=== PATIENT | female | born 1945 | race Caucasian/White ===

== ENCOUNTER 2019-09-16 15:46 | Emergency (ER) | payer MEDICARE, SELFPAY ==
--- NOTE | ~2019-09-16 | CT_ITS ---
EXAMINATION: CT chest w con DATE: 09/16/2019 18:50 INDICATION: chest mass TECHNIQUE: Computed tomography (CT) of the chest was performed with 75 mL Omnipaque-350 intravenous c ontrast. Additional 3D reconstructions utilizing coronal maximum intensity projection (MIP) were perf ormed. Automated exposure control and iterative reconstruction technique were employed. The dose-murali th product was 139.29 mGy-cm. COMPARISON: None FINDINGS: There is an approximately 9.5 x 7.7 x 10.8 cm left upper lobe mass which extends into the mediastinum concerning for primary bronchogenic carcinoma. There is consolidation in the anterior segment of the left upper lobe consistent with secondary atelectasis and possibly underlying postobstructive pneumo eleazar. The mass extends through the AP window resulting in significant stenosis of the left pulmonary a rtery. There is also significant stenosis of the left upper lobe bronchus. Portion of the mass extend s cephalad in the anterior mediastinum and occludes the left brachiocephalic vein. Injected contrast from the left upper extremity extensive multiple chest wall and paraspinal collaterals and into the s uperior vena cava via the right brachiocephalic vein. The mass encases the origin of the left carotid artery and extends around greater than 270 degrees of the circumference of the proximal aortic arch. Small left pleural effusion. Mild atelectasis/scarring at the anterolateral basilar right lower lobe. Heart size is normal. Very small pericardial effusion or potentially malignant with the mediastinal portion of the mass contacting a significant portion of the pericardium with effacement of the interv ening fat plane. Fusiform ascending thoracic aortic aneurysm measuring 4.5 x 4.4 cm. 1.4 x 0.8 x 1.5 cm epicardial lymph node near the apex of the heart which could be metastatic. Visualized upper abdom en is unremarkable. Severe spondylosis at the cervicothoracic junction. Severe left and moderate righ t glenohumeral osteoarthritis. IMPRESSION: 1. Large left upper lobe perihilar mass which invades the mediastinum concerning for primary bronchog enic carcinoma. 2. Secondary occlusion of the left brachiocephalic vein, significant stenosis of the left main pulmon chioma artery and left upper lobe bronchus and encasement of the origin of the left carotid artery which does not appear narrowed. 3. Consolidation in the anterior segment of the left upper lobe likely secondary atelectasis although underlying postobstructive pneumonia is not excludable. 4. 4.5 cm ascending thoracic aortic aneurysm. 5. Small pericardial effusion which could be malignant given the direct contact the mass with portion s of the pericardium. 6. Small left pleural effusion. 7. Enlarged epicardial lymph node which may be metastatic. Reviewed, dictated and finalized at location A. IMPRESSION: 1. Large left upper lobe perihilar mass which invades the mediastinum concernin g for primary bronchogenic carcinoma. 2. Secondary occlusion of the left brachiocephalic vein, significant stenosis o f the left main pulmonary artery and left upper lobe bronchus and encasement of the origin of the left carotid artery which does not appear narrowed. 3. Consolidation in the anterior segment of the left upper lobe likely secondar y atelectasis although underlying postobstructive pneumonia is not excludable. 4. 4.5 cm ascending thoracic aortic aneurysm. 5. Small pericardial effusion which could be malignant given the direct contact the mass with portions of the pericardium. 6. Small left pleural effusion. 7. Enlarged epicardial lymph node which may be metastatic.
--- NOTE | ~2019-09-16 | XR_ITS ---
EXAMINATION: XR chest 1V portable DATE: 09/16/2019 18:02 INDICATION: Shortness of breath TECHNIQUE: frontal view of the chest was obtained. COMPARISON: Chest radiograph dated 08/24/2014 FINDINGS: Left perihilar mass which is concerning for malignancy. Small bilateral pleural effusions. No pulmona ry edema or pneumothorax. Mild right apical pleural-parenchymal scarring. The cardiomediastinal silho uette is normal. Mild thoracic dextrocurvature. Severe left glenohumeral osteoarthritis. IMPRESSION: 1. Left perihilar mass concerning for malignancy. Recommend further evaluation with contrast-enhanced CT. 2. Small bilateral pleural effusions. Reviewed, dictated and finalized at location A.
[2019-09-16 15:48] VITALS: BP 170/106; PULSE 98; RESP 24; TEMP 36.2; O2SAT 97
[2019-09-16 16:00] VITALS: PULSE 98
--- NOTE | 2019-09-16 16:50 | ED.SOB ---
HPI - SOB/Dyspnea General Chief Complaint: Shortness of Breath/Dyspnea <Angelo James MD - Last Filed: 09/22/19 16:35> Stated Complaint: SOB <Angelo James MD - Last Filed: 09/22/19 16:35> Time Seen by Provider: 09/16/19 15:58 <Angelo James MD - Last Filed: 09/22/19 16:35> History of Present Illness HPI Narrative: Shortness of breath for several weeks. Worse with exertion. Occasional wheezing, usually clears with coughing or clearing her throat. No fever, chest pain, palpitations, LE edema. She is a former smoker. <Angelo James MD - Last Filed: 09/22/19 16:35> Related Data Home Medications: Home Medications Medication Instructions Recorded Confirmed aspirin [Aspirin Low Dose] 81 mg PO DAILY 09/16/19 carvedilol 6.25 mg PO BID 09/16/19 levothyroxine 50 mcg PO DAILY 09/16/19 meloxicam [Mobic] 15 mg PO DAILY 09/16/19 quinapril 40 mg PO BID 09/16/19 sertraline 50 mg PO DAILY 09/16/19 simvastatin 20 mg PO DAILY 09/16/19 <Angelo James MD - Last Filed: 09/22/19 16:35> Allergies/Adverse Reactions: Allergies Allergy/AdvReac Type Severity Reaction Status Date / Time Sulfa (Sulfonamide Allergy Mild Hives Verified 09/16/19 16:03 Antibiotics) Penicillins Allergy Unknown Unknown Verified 09/16/19 16:03 sulfanilamide Allergy Unknown Hives Verified 09/16/19 16:03 <Angelo James MD - Last Filed: 09/22/19 16:35> Review of Systems Review of Systems: All systems reviewed & are unremarkable except as noted in HPI and below <Angelo James MD - Last Filed: 09/22/19 16:35> Constitutional: Constitutional: Denies chills and Denies fever(s) <Angelo James MD - Last Filed: 09/22/19 16:35> ENT: Denies sore throat <Angelo James MD - Last Filed: 09/22/19 16:35> Cardiovascular: Cardiovascular: Denies chest pain <Angelo James MD - Last Filed: 09/22/19 16:35> Respiratory: Respiratory: Denies cough, Reports dyspnea and Reports wheezing <Angelo James MD - Last Filed: 09/22/19 16:35> Gastrointestinal: Gastrointestinal: Denies nausea and Denies vomiting <Angelo James MD - Last Filed: 09/22/19 16:35> Genitourinary: Genitourinary: Denies dysuria <Angelo James MD - Last Filed: 09/22/19 16:35> Musculoskeletal: Musculoskeletal: Denies back pain <Angelo James MD - Last Filed: 09/22/19 16:35> Neurologic: Denies dizziness <Angelo James MD - Last Filed: 09/22/19 16:35> PMFSH Past Medical History Medical History: Medical History HTN (hypertension) Hypothyroidism <Angelo James MD - Last Filed: 09/22/19 16:35> Family History Family History: Family History Father Hypertension Patient's father is Mother Hypertension Patient's mother is <Angelo James MD - Last Filed: 09/22/19 16:35> Social History Social History: Social History Smoking status: Former smoker Second hand tobacco smoke exposure: No Smoking end date: 04/13/03 Alcohol intake: current Gender identity (if verbalized by the patient): Female <Angelo James MD - Last Filed: 09/22/19 16:35> Exam Const: General: healthy appearing, no acute distress and alert <Angelo James MD - Last Filed: 09/22/19 16:35> Nutritional Appearance: well nourished <Angelo James MD - Last Filed: 09/22/19 16:35> Orientation/consciousness: patient oriented x3 <Angelo James MD - Last Filed: 09/22/19 16:35> HENMT: Head: normal to inspection <Angelo James MD - Last Filed: 09/22/19 16:35> Chest: Chest palpation & inspection: normal inspection of the chest <Angelo James MD - Last Filed: 09/22/19 16:35> Resp: Effort & Inspection: normal respiratory effort
--- NOTE | 2019-09-16 17:00 | ECG_ITS ---
Measurements Intervals [place] Rate: 98 P: 72 MD: 163 QRS: -6 QRSD: 148 T: 122 QT: 381 QTc: 487 Interpretive Statements SINUS RHYTHM LEFT BUNDLE BRANCH BLOCK BASELINE ARTIFACT- I, II, AVR, V6 ABNORMAL ECG Electronically Signed On 09-16-2019 17:10:20 CDT by Dustin Galan D.O.
[2019-09-16] MEDS: ALBUTEROL SULFATE (*SP) AEROSOL 1 PUFF 4 PUFF INHALATION (17:37)
[2019-09-16 18:14] LABS: Basophils Percent Auto 0.2 % (0.2-1.2); Eosinophils Percent Auto 0.7 % (0-4.4); Hematocrit 37.1 % (37.0-47.0); Immature Granulocyte Absolute 0.02 K/mm3 (0.00-0.031); Immature Granulocyte Percent A 0.5 % (0-0.5); Lymphocytes Absolute Auto 0.37 K/mm3 (0.9-3.2); Lymphocytes Percent Auto 8.4 % (18.3-44.2); Mean Corpuscular Hemoglobin 30.7 pg (26-34); Mean Corpuscular Volume 87.5 fl (80-100); Mean Platelet Volume 8.8 fl (7.4-10.4); Monocytes Absolute Auto 0.4 K/mm3 (0.1-0.6); Monocytes Percent Auto 9.5 % (2.6-8.5); Neutrophils Absolute Auto 3.6 K/mm3 (1.3-6.7); Neutrophils Percent Auto 80.7 % (45.5-73.1); Platelet Count Result 242 k/mm3 (150-375); Red Blood Count 4.24 M/mm3 (4.2-5.4); Red Cell Distribution Width 13.2 % (11.5-14.5); White Blood Count 4.4 K/mm3 (4.5-10.0)
[2019-09-16 18:21] LABS: Prothrombin Time 12.7 Seconds (11.1-14.7)
[2019-09-16 18:22] LABS: Partial Thromboplastin Time 29.2 SECONDS (22.3-36.8)
[2019-09-16 18:27] LABS: Blood Urea Nitrogen 18 mg/dL (7-17); Calcium 9.1 mg/dL (8.4-10.2); Carbon Dioxide 27 mmol/L (22-30); Chloride 87 mmol/L (98-107); Estimated CRCL calculation 52 ml/min; Estimated Glomerular Filt Rate > 60; Glucose 93 mg/dL (65-105); Potassium 4.3 mmol/L (3.4-5.0); Sodium 123 mmol/L (137-145)
[2019-09-16 18:39] LABS: NT Pro B Type Natriuretic Pept 2660 PG/ML (5-100); Troponin I < 0.012 ng/mL (0.000-0.034)
[2019-09-16 20:56] VITALS: BP 165/86; PULSE 68; RESP 16; TEMP 36.6; O2SAT 98
[2019-09-16 22:13] VITALS: BP 149/90; PULSE 101; RESP 16; O2SAT 98
--- NOTE | 2019-09-16 23:00 | PC.NURSE ---
report given to WARD tucker
[2019-09-16 23:01] VITALS: BP 161/91; PULSE 73; RESP 28; O2SAT 98
--- NOTE | 2019-09-16 23:19 | PC.NURSE ---
notified Jaimie that this patient is going to be transferred to [facility].
--- NOTE | 2019-09-17 00:31 | PC.NURSE ---
This nurse spoke with ER charge Joyce at [id number], she states report had been given and documented. EMS called, ETA [id number].
[2019-09-17 00:41] VITALS: BP 131/82; PULSE 67; RESP 16; O2SAT 97
[2019-09-17 01:35] VITALS: BP 177/78; PULSE 68; RESP 15; O2SAT 98
[2019-09-17 13:40] LABS: SARS-CoV-2 RNA PCR Negative
== END 2019-09-17 01:37 | disposition short-term general hospital (02) ==
PROVIDERS: Emergency Medicine; Emergency Provider Emergency Medicine
DX: R91.8 Other nonspecific abnormal finding of lung field (principal); I31.3 Pericardial effusion (noninflammatory); E87.1 Hypo-osmolality and hyponatremia; Z20.828 Contact with and (suspected) exposure to other viral communicable diseases; Z87.891 Personal history of nicotine dependence; I10 Essential (primary) hypertension; E03.9 Hypothyroidism, unspecified; Z79.82 Long term (current) use of aspirin; I44.7 Left bundle-branch block, unspecified; R94.31 Abnormal electrocardiogram [ECG] [EKG]
CPT/HCPCS: 36415; 71045; 71260; 80048; 83880; 84484; 85025; 85610; 85730; 87635; 93005; 99285; A9270; C9803; Q9967; U0003